=== PATIENT | male | born 1965 | race Caucasian/White ===

== ENCOUNTER 2019-11-07 16:52 | Emergency (ER) | payer SELFPAY ==
[~2019-11-07] VITALS: Ht 175.3 cm; Wt 73.5 kg
[~2019-11-07 16:52] MED LIST: A/B OTIC15 ML; GLYBURIDE5 MG PO; INVOKANA300 MG PO; LOP600 PO; METFORMIN500 M1 PO; ZOCOR20 MG PO
[2019-11-07 17:19] VITALS: BP 118/59; Ht 175.3 cm; Wt 73.5 kg
== END 2019-11-07 18:11 | disposition home or self-care (01) ==
LOC: ED 16:52
DX: R53.81 Other malaise (principal); E86.0 Dehydration; I10 Essential (primary) hypertension; E11.9 Type 2 diabetes mellitus without complications; Z59.0 Homelessness; Z88.1 Allergy status to other antibiotic agents
CPT/HCPCS: 82962